=== PATIENT | male | born 1995 | race Caucasian/White ===

== ENCOUNTER 2017-09-29 07:55 | Emergency (ER) | payer OTHER ==
[~2017-09-29] VITALS: Ht 180.3 cm; Wt 90.0 kg
[2017-09-29 08:10] VITALS: BP 141/77; PULSE 68; TEMP 37; O2SAT 99; Ht 180.3 cm; Wt 90.0 kg
--- NOTE | 2017-09-29 08:21 | EMERGENCY ROOM VISIT NOTE ---
ED Visit Note First contact with patient: 08:05 CHIEF COMPLAINT: Shoulder pain HISTORY OF PRESENT ILLNESS: This 22-year-old male patient presents to the emergency department ambulatory, complaining of pain in the right shoulder since Friday. The patient was snowboarding in [place], when he fell off of a rail backwards, landing on the posterior aspect of his right shoulder. The patient states he [place], who suspected a fracture, however because [place], he did not get medical attention. He was given a sling, and has been wearing the sling for comfort. There is mild limitation of motion of the arm because of the pain. The pain is moderate, constant and increases with motion of the hand and arm. The patient experiences discomfort with abduction and shrugging of the shoulder. The patient states the pain is sharp with movement and 5/10. The patient has taken 400 mg ibuprofen every 6-7 hours with relief of the pain. The patient does have a history of arthritis and biceps tendinitis in the right shoulder, for which he sees an orthopedic surgeon in [place]. No numbness or tingling. No neck or back pain. No chest pain or shortness of breath. No abdominal pain or nausea/vomiting. No cough. REVIEW OF SYSTEMS: A 6 system review of systems was performed with positives and pertinent negatives in the HPI. ALLERGIES: None MEDICATIONS: Cetirizine PMH: Arthritis, biceps tendinitis SOCIAL HISTORY: The patient is a [employer] student. He is from [place]. He denies drug, alcohol, tobacco use. PHYSICAL EXAM: Vital Signs: Reviewed nurse's notes, vital signs stable. GENERAL : Is a 22-year-old white male, in no acute distress, but appears to be in pain, well-developed, well-nourished. MUSCULOSKELETAL: There is no deformity in the contour of the right shoulder and there are no john deformities noted. There is no sulcus sign. There is tenderness over the distal clavicle and superior/ posterior aspect of the right shoulder joint. The patient's range of motion is limited in the anterior direction and abduction due to pain. Supraspinatus strength 4/5. There is mild distal clavicle tenderness. No tenderness of the humerus, elbow, wrist, or hand. Travel Pt strength 5/5. Radial pulse 2+. NECK: No tenderness to palpation over the cervical spine. HEART: Regular rate and rhythm without murmurs gallops or rubs. LUNGS: Clear to auscultation bilaterally without wheezes, rales or rhonchi. No accessory muscle use. No retractions. NEURO: The patient is alert and oriented to person, place, and time. Normal sensation to light and sharp touch. Capillary refill less than 2 seconds. RADIOLOGY: R SHOULDER MIN 2 VIEWS ROUTINE CLINICAL HISTORY: Right shoulder pain status post trauma COMPARISON: None. DISCUSSION: No fractures or dislocations are visualized. There are no visible periarticular calcifications. IMPRESSION: No fractures or dislocations identified. Electronically signed by: Alpesh Stauffer M.D. 09/29/2017 8:36 AM Dictated Date/Time: 09/29/2017 8:30 AM EMERGENCY DEPARTMENT COURSE: I examined the patient. An X-ray of the right shoulder was reviewed by myself and radiologist and shows no fractures or dislocations. I do suspect a contusion related to the fall. The patient was encouraged to wear the sling which he is already wearing when he entered the emergency department for comfort, however move the joint around to prevent stiffness of the shoulder joint. The patient is encouraged to follow up with orthopedics/[facility] if no improvement. Discharge instructions reviewed, and the patient was discharged home in good condition. I attest that I have personally reviewed the patient's current medication list. Patient was found to have normal blood pressure on screening and does not require follow-up. DIFFERENTIAL DIAGNOSIS: Contusion, sprain, strain, dislocation, fracture, separation, malignancy, and others DIAGNOSIS: Shoulder contusion Current/Historical Medications Scheduled PRN Ibuprofen Tab (Advil), 200-600 MG PO UD PRN for Pain Allergies Coded Allergies: No Known Allergies (Unverified , 09/29/17) Vital Signs Date Time Temp Pulse Resp B/P (MAP) Pulse Ox O2 Delivery O2 Flow Rate FiO2 09/29/17 08:10 37.0 68 16 141/77 99 Room Air Departure Information Impression Primary Impression: Contusion of right shoulder, initial encounter Dispostion Home / Self-Care Condition GOOD Referrals No Doctor, Assigned (PCP) Crispin Butler MD [facility] Patient Instructions ED Contusion Shoulder, My [facility] Additional Instructions You have been treated in the Emergency Department for Shoulder Pain. X-ray was negative for fracture, and I do suspect a contusion related to your fall. For pain control, you can use the following [id number] medicines (if >12 yo): Ibuprofen(Motrin, Advil) may be used for fever or pain. Use 600mg every six hours as needed. Take with food. Avoid using more than 2400mg in a 24 hour period. Do not use 2400mg per day for more than three consecutive days without physician direction. Prolonged inappropriate use can lead to stomach upset or ulcers. (AND/OR) Acetaminophen(Tylenol) may be used for fever or pain. Use 1000mg every six hours as needed. Avoid using more than 3000mg in a 24 hour period. If this is a recent injury (<24 hrs), ice can be applied to the area of pain for the first 3 days to help decrease pain and inflammation. You have been provided the number for an Orthopaedic Surgeon. You should call this number if no improvement in 5-7 days. Wear the sling for comfort. Remove the sling and move the joints around several times per day to keep the joints loose, but only until you reach the point of discomfort. Return to the Emergency Department if your current symptoms worsen despite treatment course outlined above, or if you develop any of the following symptoms : intractable pain despite aforementioned treatment course or new onset of numbness or tingling of the arm.
[2017-09-29] MEDS ORDERED: IBUP-103 PO (08:26)
--- NOTE | 2017-09-29 08:38 | DIAGNOSTIC IMAGING REPORT ---
R SHOULDER MIN 2 VIEWS ROUTINE CLINICAL HISTORY: Right shoulder pain status post trauma COMPARISON: None. DISCUSSION: No fractures or dislocations are visualized. There are no visible periarticular calcifications. IMPRESSION: No fractures or dislocations identified. Electronically signed by: Alpesh Stauffer M.D. 09/29/2017 8:36 AM Dictated Date/Time: 09/29/2017 8:30 AM
== END 2017-09-29 09:16 | disposition home or self-care (01) ==
LOC: C.EDB 08:00
DX: S40.011A Contusion of right shoulder, initial encounter (principal); W00.2XXA Other fall from one level to another due to ice and snow, initial encounter; Y93.23 Activity, snow (alpine) (downhill) skiing, snowboarding, sledding, tobogganing and snow tubing; Y92.838 Other recreation area as the place of occurrence of the external cause; M19.011 Primary osteoarthritis, right shoulder; M75.21 Bicipital tendinitis, right shoulder